=== PATIENT | male | born 1935 | race Caucasian/White ===

== ENCOUNTER 2016-12-18 17:54 | Emergency (ER) | payer MEDICARE, OTHER ==
[~2016-12-18] VITALS: Ht 1 cm; Wt 88.0 kg
[~2016-12-18 17:54] MED LIST: FINASTERIDE5 M1 PO; OMEPRAZOLE40 MG PO
[2016-12-18] MEDS ORDERED: CEPHALEXIN500 M1 PO (18:47)
== END 2016-12-18 18:46 | disposition home or self-care (01) ==
LOC: ED 17:54
DX: S81.011A Laceration without foreign body, right knee, initial encounter (principal); Z96.653 Presence of artificial knee joint, bilateral; Z90.49 Acquired absence of other specified parts of digestive tract; Z98.890 Other specified postprocedural states; Z79.899 Other long term (current) drug therapy; W29.3XXA Contact with powered garden and outdoor hand tools and machinery, initial encounter; Y93.89 Activity, other specified; Y92.69 Other specified industrial and construction area as the place of occurrence of the external cause; Y99.9 Unspecified external cause status

== ENCOUNTER → 2018-06-28 | Outpatient (CLI) | payer MEDICARE, OTHER ==
[~2018-06-28] MED LIST changes: +CEPHALEXIN500 M1 PO
== END | disposition home or self-care (01) ==
LOC: RAD 10:58
DX: M47.896 Other spondylosis, lumbar region (principal); M48.07 Spinal stenosis, lumbosacral region; M25.552 Pain in left hip

== ENCOUNTER → 2019-01-08 | Outpatient (CLI) | payer MEDICARE, OTHER ==
[~2019-01-08] MED LIST changes: +BACITRACIN ZIN0.9 GM T
== END | disposition home or self-care (01) ==
LOC: ORTHO 03:27
DX: M16.12 Unilateral primary osteoarthritis, left hip (principal); M25.752 Osteophyte, left hip

== ENCOUNTER → 2020-04-29 | Outpatient (CLI) | payer MEDICARE, OTHER | END | disposition home or self-care (01) | LOC: CARD 10:30 | DX: R42 Dizziness and giddiness (principal) ==

== ENCOUNTER → 2020-05-19 | Outpatient (CLI) | payer MEDICARE, OTHER | END | disposition home or self-care (01) | LOC: US 15:19 | DX: I65.23 Occlusion and stenosis of bilateral carotid arteries (principal) ==

== ENCOUNTER 2023-12-18 13:24 | Emergency (ER) | payer MEDICARE, OTHER ==
[~2023-12-18] VITALS: Ht 165.1 cm; Wt 61.7 kg
[~2023-12-18 13:24] MED LIST changes: +TOPROL XL25 MG PO
[2023-12-18] MEDS ORDERED: TYLENOL EXTRA500 MG PO (13:41)
[2023-12-18] MEDS ORDERED: MUCINEX1200 M1 PO (15:23)
[2023-12-18] MEDS ORDERED: ZITHROMAX250 MG PO (15:23)
[2023-12-18] MEDS ORDERED: GUAIFENESIN 600 MG TAB ER PO ONE (15:25)
[2023-12-18] MEDS ORDERED: AZITHROMYCIN 250 MG TAB PO ONE (15:25)
== END 2023-12-18 15:36 | disposition home or self-care (01) ==
LOC: ED 13:24
DX: J18.9 Pneumonia, unspecified organism (principal); Z96.653 Presence of artificial knee joint, bilateral; Z90.49 Acquired absence of other specified parts of digestive tract; Z98.890 Other specified postprocedural states

== ENCOUNTER 2024-01-19 12:27 | Inpatient (IN) | payer MEDICARE, OTHER ==
[~2024-01-19] VITALS: Ht 177.8 cm; Wt 59.0 kg
[~2024-01-19 12:27] MED LIST changes: +MUCINEX1200 M1 PO; +TYLENOL EXTRA500 MG PO; +ZITHROMAX250 MG PO
[2024-01-19 12:34] VITALS: BP 115/54
[2024-01-19] MEDS ORDERED: Albuterol Sulf/Ipratropium 3 ML VIAL NEB ONE (12:45)
[2024-01-19] MEDS ORDERED: methylPREDNISolone sod succ 125 MG VIAL IV ONE (12:45)
[2024-01-19 13:28] LABS: ALKALINE PHOSPHATASE 108 U/L (46-116); BUN 20 mg/dl (9-23); CHLORIDE 103 mmol/L (98-107); CPK 66 U/L (34-171); POTASSIUM 3.7 mmol/L (3.4-5.1); SGPT/ALT 11 U/L (5-49); TOTAL PROTEIN 7.4 gm/dL (6.0-8.0)
[2024-01-19 13:51] LABS: BASO % 0.2 % (0.0-1.0); EOS # 0.1 10*3/uL (0.0-0.4); EOS % 0.8 % (1.0-4.0); HEMATOCRIT 40.9 % (42.0-52.0); LYMPH % 11.8 % (27.0-41.0); MEAN CELL VOLUME 90.9 fl (80.0-94.0); MEAN CORPUSCULAR HGB 27.6 pg (27.0-31.0); MEAN CORPUSCULAR HGB CONC 30.3 g/dl (33.0-37.0); MEAN PLATELET VOLUME 12.8 fl (9.6-12.3); MONO # 0.7 10*3/uL (0.1-1.0); MONO % 8.2 % (3.0-9.0); NEUT # 6.6 10*3/uL (2.3-7.9); NEUT % 78.4 % (47.0-73.0); PLATELET COUNT AUTOMATED 316 10*3/uL (130-400); RED CELL DISTRI WIDTH 15.3 % (0-14.5); WHITE BLOOD COUNT 8.4 10*3/uL (4.8-10.8)
[2024-01-19] MEDS ORDERED: AZITHROMYCIN 250 ML IV ONE (14:30)
[2024-01-19] MEDS ORDERED: Ceftriaxone Sodium 1 GM/10 ML SYR IV ONE (14:30)
[2024-01-19] MEDS ORDERED: CLARITIN10 MG PO (14:37)
[2024-01-19] MEDS ORDERED: ACETAMINOPHEN 325 MG TAB PO PRN (14:40)
[2024-01-19] MEDS ORDERED: Ondansetron Hydrochloride 4 MG/2 ML VIAL IV PRN (14:40)
[2024-01-19] MEDS ORDERED: BISACODYL 5 MG TAB PO PRN (14:40)
[2024-01-19] MEDS ORDERED: Albuterol Sulf/Ipratropium 3 ML VIAL NEB SCH (15:26)
[2024-01-19 16:00] VITALS: BP 105/54
[2024-01-19] MEDS ORDERED: FLONASE ALLERG9.9 ML NAS (16:02)
[2024-01-19] MEDS ORDERED: HYOSCYAMINE0.125 M3 PO (16:03)
[2024-01-19 20:00] VITALS: BP 123/67
[2024-01-19] MEDS ORDERED: FINASTERIDE 5 MG TAB PO SCH (22:00)
[2024-01-19] MEDS ORDERED: GUAIFENESIN 600 MG TAB ER PO SCH (22:00)
[2024-01-19] MEDS ORDERED: FLUTICASONE PROPIONATE Nasal 16 Gm spray NAS SCH (22:00)
[2024-01-20] VITALS: BP 104/52
[2024-01-20 05:57] LABS: BUN 26 mg/dl (9-23); CHLORIDE 104 mmol/L (98-107); CHOLESTEROL 93 mg/dL (<200); FREE T4 0.92 ng/dl (0.89-1.76); LDL CHOLESTEROL 32 mg/dL (9-159); POTASSIUM 3.7 mmol/L (3.4-5.1); TRIGLYCERIDES 25 mg/dl (<150)
[2024-01-20 06:30] LABS: HEMATOCRIT 36.3 % (42.0-52.0); MEAN CELL VOLUME 89.6 fl (80.0-94.0); MEAN CORPUSCULAR HGB 27.9 pg (27.0-31.0); MEAN CORPUSCULAR HGB CONC 31.1 g/dl (33.0-37.0); PLATELET COUNT AUTOMATED 295 10*3/uL (130-400); RED BLOOD COUNT 4.05 10*6/uL (4.50-5.90); RED CELL DISTRI WIDTH 15.3 % (0-14.5); WHITE BLOOD COUNT 12.2 10*3/uL (4.8-10.8)
[2024-01-20 06:40] LABS: MANUAL DIFF REFLEX YES
[2024-01-20 07:04] LABS: TOTAL CELLS COUNTED 100 #CELLS
[2024-01-20 07:05] LABS: PLATELET SUFFICIENCY NORMAL (NORMAL); ROULEAUX SLIGHT
[2024-01-20 08:00] VITALS: BP 122/53
[2024-01-20] MEDS ORDERED: HYOSCYAMINE SULFATE 0.125 MG TAB PO SCH (10:00)
[2024-01-20] MEDS ORDERED: METOPROLOL SUCCINATE XR 25 MG TAB PO SCH (10:00)
[2024-01-20] MEDS ORDERED: LORATADINE 10 MG TAB PO SCH (10:00)
[2024-01-20] MEDS ORDERED: Enoxaparin Sodium 40 MG/0.4 ML SYR SC SCH (10:00)
[2024-01-20 10:11] LABS: VITAMIN D, 25-HYDROXY 42.4 ng/mL (30-100)
[2024-01-20 12:00] VITALS: BP 117/77
[2024-01-20] MEDS ORDERED: Ceftriaxone Sodium 1 GM,IV 1 EA in SYRINGE INFUSION 10 ML IV SCH (12:00)
[2024-01-20] MEDS ORDERED: AZITHROMYCIN 250 ML IV SCH (14:00)
[2024-01-20 16:00] VITALS: BP 115/52
[2024-01-20 20:00] VITALS: BP 123/68
[2024-01-21] VITALS: BP 140/65
[2024-01-21 06:32] LABS: BASO % 0.2 % (0.0-1.0); EOS % 0.1 % (1.0-4.0); HEMATOCRIT 36.7 % (42.0-52.0); LYMPH # 1.9 10*3/uL (1.3-4.4); LYMPH % 14.2 % (27.0-41.0); MEAN CELL VOLUME 89.7 fl (80.0-94.0); MEAN CORPUSCULAR HGB 28.4 pg (27.0-31.0); MEAN CORPUSCULAR HGB CONC 31.6 g/dl (33.0-37.0); MEAN PLATELET VOLUME 12.8 fl (9.6-12.3); MONO # 1.2 10*3/uL (0.1-1.0); MONO % 8.8 % (3.0-9.0); NEUT # 10.1 10*3/uL (2.3-7.9); NEUT % 76.2 % (47.0-73.0); PLATELET COUNT AUTOMATED 323 10*3/uL (130-400); RED BLOOD COUNT 4.09 10*6/uL (4.50-5.90); RED CELL DISTRI WIDTH 15.5 % (0-14.5); WHITE BLOOD COUNT 13.2 10*3/uL (4.8-10.8)
[2024-01-21 06:59] LABS: BUN 25 mg/dl (9-23); CHLORIDE 105 mmol/L (98-107); POTASSIUM 3.8 mmol/L (3.4-5.1)
[2024-01-21 08:00] VITALS: BP 124/56
[2024-01-21 08:06] LABS: IMMUNOGLOBULIN M, QNT 287 mg/dL (15-143)
[2024-01-21 12:00] VITALS: BP 107/46
[2024-01-21 16:00] VITALS: BP 108/64
[2024-01-21 20:00] VITALS: BP 133/56
[2024-01-22] VITALS (9 sets, daily range): BP systolic 104–149; BP diastolic 53–78
[2024-01-22 06:34] LABS: BASO % 0.2 % (0.0-1.0); EOS # 0.2 10*3/uL (0.0-0.4); EOS % 1.8 % (1.0-4.0); HEMATOCRIT 35.2 % (42.0-52.0); LYMPH # 1.9 10*3/uL (1.3-4.4); LYMPH % 22.9 % (27.0-41.0); MEAN CELL VOLUME 90.7 fl (80.0-94.0); MEAN CORPUSCULAR HGB 27.8 pg (27.0-31.0); MEAN CORPUSCULAR HGB CONC 30.7 g/dl (33.0-37.0); MEAN PLATELET VOLUME 12.8 fl (9.6-12.3); NEUT # 5.3 10*3/uL (2.3-7.9); NEUT % 62.7 % (47.0-73.0); PLATELET COUNT AUTOMATED 318 10*3/uL (130-400); RED BLOOD COUNT 3.88 10*6/uL (4.50-5.90); RED CELL DISTRI WIDTH 15.4 % (0-14.5); WHITE BLOOD COUNT 8.4 10*3/uL (4.8-10.8)
[2024-01-22 07:23] LABS: BUN 20 mg/dl (9-23); CHLORIDE 105 mmol/L (98-107)
[2024-01-22] MEDS ORDERED: Lidocaine Hydrochloride 4% 5 ML AMP NEB ONE (09:00)
[2024-01-22] MEDS ORDERED: Albuterol Sulfate 2.5 MG/0.5 ML VIAL NEB ONE ×2 (09:00→09:19)
[2024-01-22] MEDS ORDERED: SODIUM CHLORIDE 0.9% 1,000 ML IV ONE (09:01)
[2024-01-22] MEDS ORDERED: Lidocaine Hydrochloride 4% 5 ML AMP ONE (09:19)
[2024-01-22] MEDS ORDERED: Albuterol Sulf/Ipratropium 3 ML VIAL NEB ONE ×2 (10:05→10:32)
[2024-01-22 14:07] LABS: ALDOLASE 3.1 U/L (3.3-10.3); ANGIOTENSIN-CONVERTING ENZYME 47 U/L (14-82)
[2024-01-22 15:06] LABS: IGG SUBCLASS 1 630 mg/dL (248-810); IGG SUBCLASS 2 395 mg/dL (130-555); IGG SUBCLASS 3 39 mg/dL (15-102); IMMUNOGLOBULIN G, QNT 1414 mg/dL (603-1613)
[2024-01-22] MEDS ORDERED: Lidocaine Hydrochloride 2% 10 ML AMP IM ONE (17:17)
[2024-01-22] MEDS ORDERED: PROPOFOL 200 MG/20 ML VIAL IV ONE (17:17)
[2024-01-23] VITALS: BP 123/72
[2024-01-23 08:00] VITALS: BP 153/78
[2024-01-23 09:07] LABS: ACID FAST SPEC PROCESSING Concentration (.)
[2024-01-23 12:00] VITALS: BP 112/63
[2024-01-23] MEDS ORDERED: LEVOFLOXACIN 500 MG TAB PO SCH (14:15)
[2024-01-23 16:00] VITALS: BP 106/51
[2024-01-23 20:00] VITALS: BP 107/54
[2024-01-23 20:07] LABS: TB1 Ag VALUE 0.02 IU/mL (.)
[2024-01-24] VITALS: BP 97/41
[2024-01-24 08:00] VITALS: BP 142/66
[2024-01-24] MEDS ORDERED: METOPROLOL SUCC25 M2 PO (09:42)
[2024-01-24] MEDS ORDERED: AMOX-CLAV 875-1 EACH PO (09:42)
[2024-01-24 12:00] VITALS: BP 120/66
== END 2024-01-24 15:25 | disposition home or self-care (01) | DRG 871 ==
LOC: ED 12:27 → EDHOLD 14:29 → 4E 14:29 → EDHOLD 14:30 → 4E 14:41
PROVIDERS: Internal Medicine Critical Care Medicine; Physician Assistant Medical; Registered Nurse; Student in an Organized Health Care Education/Training Program; ADMIT Internal Medicine; ATTEND Internal Medicine
PROC: 0BC18ZZ Extirpation of Matter from Trachea, Via Natural or Artificial Opening Endoscopic (ICD-10-PCS; principal; 2024-01-22)
PROC: 0BC98ZZ Extirpation of Matter from Lingula Bronchus, Via Natural or Artificial Opening Endoscopic (ICD-10-PCS; 2024-01-22)
PROC: 0BC48ZZ Extirpation of Matter from Right Upper Lobe Bronchus, Via Natural or Artificial Opening Endoscopic (ICD-10-PCS; 2024-01-22)
PROC: 0BC88ZZ Extirpation of Matter from Left Upper Lobe Bronchus, Via Natural or Artificial Opening Endoscopic (ICD-10-PCS; 2024-01-22)
PROC: 0BC58ZZ Extirpation of Matter from Right Middle Lobe Bronchus, Via Natural or Artificial Opening Endoscopic (ICD-10-PCS; 2024-01-22)
PROC: 0BC38ZZ Extirpation of Matter from Right Main Bronchus, Via Natural or Artificial Opening Endoscopic (ICD-10-PCS; 2024-01-22)
PROC: 0BC78ZZ Extirpation of Matter from Left Main Bronchus, Via Natural or Artificial Opening Endoscopic (ICD-10-PCS; 2024-01-22)
PROC: 0BC68ZZ Extirpation of Matter from Right Lower Lobe Bronchus, Via Natural or Artificial Opening Endoscopic (ICD-10-PCS; 2024-01-22)
PROC: 0BCB8ZZ Extirpation of Matter from Left Lower Lobe Bronchus, Via Natural or Artificial Opening Endoscopic (ICD-10-PCS; 2024-01-22)
DX: A41.59 Other Gram-negative sepsis (principal); E43 Unspecified severe protein-calorie malnutrition; J15.69 Pneumonia due to other Gram-negative bacteria; Z68.1 Body mass index [BMI] 19.9 or less, adult; R54 Age-related physical debility; R63.4 Abnormal weight loss; Z96.653 Presence of artificial knee joint, bilateral; K21.9 Gastro-esophageal reflux disease without esophagitis; K44.9 Diaphragmatic hernia without obstruction or gangrene; N40.0 Benign prostatic hyperplasia without lower urinary tract symptoms; R73.9 Hyperglycemia, unspecified; Z86.73 Personal history of transient ischemic attack (TIA), and cerebral infarction without residual deficits; Z90.49 Acquired absence of other specified parts of digestive tract; Z82.5 Family history of asthma and other chronic lower respiratory diseases; Z80.8 Family history of malignant neoplasm of other organs or systems

== ENCOUNTER 2024-04-30 02:40 | Emergency (ER) | payer MEDICARE ==
[~2024-04-30] VITALS: Ht 172.7 cm; Wt 56.8 kg
[~2024-04-30 02:40] MED LIST changes: +ACETAMINOPHEN500 M4 PEG; +AMOX-CLAV 875-1 EACH PO; +CHOLESTYRAMINE P4 GM PEG; +CLARITIN10 MG PO; +FINASTERIDE5 M1 PEG; +FLONASE ALLERG9.9 ML NAS; +HYOSCYAMINE0.125 M3 PO; +LEVOFLOXACIN750 M2 PEG; +LOPRESSOR25 MG PEG; +METOPROLOL SUCC25 M2 PO
[2024-04-30 02:59] LABS: BASO # 0.1 10*3/uL (0.0-0.1); BASO % 0.8 % (0.0-1.0); EOS # 0.1 10*3/uL (0.0-0.4); EOS % 1.8 % (1.0-4.0); HEMATOCRIT 38.2 % (42.0-52.0); LYMPH # 0.8 10*3/uL (1.3-4.4); LYMPH % 13.5 % (27.0-41.0); MEAN CELL VOLUME 92.9 fl (80.0-94.0); MEAN CORPUSCULAR HGB 28.2 pg (27.0-31.0); MEAN CORPUSCULAR HGB CONC 30.4 g/dl (33.0-37.0); MEAN PLATELET VOLUME 12.2 fl (9.6-12.3); MONO # 0.4 10*3/uL (0.1-1.0); NEUT # 4.7 10*3/uL (2.3-7.9); NEUT % 76.4 % (47.0-73.0); PLATELET COUNT AUTOMATED 313 10*3/uL (130-400); RED BLOOD COUNT 4.11 10*6/uL (4.50-5.90); RED CELL DISTRI WIDTH 16.1 % (0-14.5); WHITE BLOOD COUNT 6.1 10*3/uL (4.8-10.8)
[2024-04-30 03:19] LABS: BUN 16 mg/dl (9-23); CHLORIDE 99 mmol/L (98-107); CPK 56 U/L (34-171); POTASSIUM 4.1 mmol/L (3.4-5.1)
== END 2024-04-30 05:58 | disposition home or self-care (01) ==
LOC: ED 02:40
PROVIDERS: Internal Medicine
DX: L53.9 Erythematous condition, unspecified (principal); E87.1 Hypo-osmolality and hyponatremia; Z79.899 Other long term (current) drug therapy; Z79.2 Long term (current) use of antibiotics; Z96.653 Presence of artificial knee joint, bilateral; Z90.49 Acquired absence of other specified parts of digestive tract; Z98.890 Other specified postprocedural states; W06.XXXA Fall from bed, initial encounter; Y93.89 Activity, other specified; Y92.128 Other place in nursing home as the place of occurrence of the external cause; Y99.8 Other external cause status

== ENCOUNTER → 2024-05-22 | Outpatient (CLI) | payer MEDICARE ==
[~2024-05-22] MED LIST changes: +BARIUM SULFATE 98% 340 GM BOT PO ONE
== END | disposition home or self-care (01) ==
LOC: RAD/SH 00:39
PROVIDERS: ATTEND Internal Medicine
DX: R13.10 Dysphagia, unspecified (principal)